=== PATIENT | male | born 1995 | race Caucasian/White ===

== ENCOUNTER 2018-10-05 14:05 | Emergency (ER) | payer SELFPAY ==
[2018-10-05 15:15] VITALS: BP 140/93
--- NOTE | 2018-10-05 16:48 | ED Physician Documentation ---
PD HPI SKIN - Stated complaint Stated Complaint: BUMP ON BILAT SIDES - Chief complaint Chief Complaint: Wound - History obtained from History obtained from: Patient - History of Present Illness Timing - onset: Other (For the last 3-5 months he has had painful and annoying lumps above both hips. They are slowly worsening and growing.) Review of Systems Constitutional: denies: Fever, Chills GI: denies: Abdominal Pain, Nausea, Vomiting : reports: Reviewed and negative PD PAST MEDICAL HISTORY - Present Medications Home Medications: Ambulatory Orders Medication Instructions Recorded Confirmed Meloxicam [Mobic] 7.5 mg PO BID PRN #20 tablet 10/05/18 - Allergies Allergies/Adverse Reactions: Allergies Allergy/AdvReac Type Severity Reaction Status Date / Time No Known Drug Allergies Allergy Verified 10/05/18 15:15 PD ED PE NORMAL - Vitals Vital signs reviewed: Yes - General General: Alert and oriented X 3, No acute distress - Derm Derm: Other (He has a marble sized firm lump above the pelvic brim on the right and a 3 x 1 cm similar lump in a similar position on the left. They are consistent with lipomas.) - Neuro Neuro: Alert and oriented X 3, Normal speech Results - Vitals Vitals: Vital Signs - 24 hr 10/05/18 15:11 Temperature 36.2 C L Heart Rate 82 Respiratory 16 Rate Blood Pressure 140/93 H O2 Saturation 100 Oxygen O2 Source Room air Departure - Departure Disposition: 01 Home, Self Care Clinical Impression: Multiple lipomas Condition: Good Record reviewed to determine appropriate education?: Yes Instructions: ED Lipoma Follow-Up: Toney Valentin MD [Provider Admit Priv/Credential] - Prescriptions: Meloxicam [Mobic] 7.5 mg PO BID PRN #20 tablet PRN Reason: Pain Comments: Call your doctor to arrange a follow-up appointment, make the next available appointment. In the interim, return anytime if worse or if new symptoms develop. Your blood pressure was elevated today on check into the emergency department. This does not mean that you have hypertension, it is a common phenomenon to come to the emergency department and have elevated blood pressure. I recommend that you see your primary care physician within the week to have it rechecked when you are feeling better.
== END 2018-10-05 16:50 | disposition home or self-care (01) ==
LOC: ED 14:05
DX: D17.79 Benign lipomatous neoplasm of other sites (principal); R03.0 Elevated blood-pressure reading, without diagnosis of hypertension
CPT/HCPCS: 99283

== ENCOUNTER 2020-06-12 09:14 | Outpatient (CLI) | payer OTHER ==
[2020-06-12 12:06] LABS: BASOPHILS % (AUTO) 0.5 %; EOSINOPHILS # (AUTO) 0.3 10^3/uL (0.0-0.7); EOSINOPHILS % (AUTO) 5.3 %; LYMPHOCYTES # (AUTO) 1.6 10^3/uL (1.5-3.5); LYMPHOCYTES % (AUTO) 25.4 %; MEAN CORPUSCULAR HEMOGLOBIN 28.8 pg (27.0-31.0); MEAN CORPUSCULAR HGB CONC 33.3 g/dL (32.0-36.0); MEAN CORPUSCULAR VOLUME 86.4 fL (80.0-94.0); MEAN PLATELET VOLUME 11.3 fL (7.4-11.4); MONOCYTES # (AUTO) 0.4 10^3/uL (0.0-1.0); MONOCYTES % (AUTO) 5.9 %; NEUTROPHILS # (AUTO) 4.1 10^3/uL (1.5-6.6); NEUTROPHILS % (AUTO) 62.7 %; PLT - PLATELET COUNT 206 10^3/uL (130-450); RED BLOOD COUNT 5.21 10^6/uL (4.70-6.10); RED CELL DISTRIBUTION WIDTH 11.8 % (12.0-15.0); WHITE BLOOD COUNT 6.5 x10^3/uL (4.8-10.8)
[2020-06-12 12:23] LABS: ALBUMIN 4.6 g/dL (3.2-5.5); ALBUMIN/GLOBULIN RATIO 1.6 (1.0-2.2); BILIRUBIN,TOTAL 2.4 mg/dL (0.2-1.0); CALCIUM 9.5 mg/dL (8.5-10.3); CREATININE 0.9 mg/dL (0.6-1.2); TOTAL PROTEIN 7.4 g/dL (6.7-8.2)
[2020-06-12 12:48] LABS: HEMOGLOBIN A1c% 5.3 % (4.27-6.07)
== END 2020-06-12 23:59 | disposition home or self-care (01) ==
LOC: LAB.WCP 09:14
PROVIDERS: ATTEND Family Medicine
DX: M54.5 Low back pain (principal); G89.29 Other chronic pain; R61 Generalized hyperhidrosis
CPT/HCPCS: 36415; 80053; 83036; 84443; 85025; 85651

== ENCOUNTER 2020-06-22 08:30 | Outpatient (CLI) | payer OTHER ==
--- NOTE | 2020-06-22 13:39 | XRAY Report ---
PROCEDURE: Lumbar Spine 2 View INDICATIONS: NIGHT SWEATS/CHRONIC LOW BACK PAIN TECHNIQUE: 2 views of the lumbar spine were acquired. COMPARISON: None. FINDINGS: Bones: 5 [id number] vertebrae are present. There is normal bony alignment. No vertebral body compression fractures. No suspicious bony lesions. Soft tissues: Overlying bowel gas pattern is normal. No suspicious soft tissue calcifications. IMPRESSION: No visualized acute fracture or dislocation. However, occult injury cannot be excluded. Recommend short interval imaging follow-up in 7-10 days as clinically indicated for additional evalua tion. Reviewed by: Katie Das MD on 06/22/2020 1:37 PM PDT Approved by: Katie Das MD on 06/22/2020 1:37 PM PDT Station ID: [id number]
--- NOTE | 2020-06-22 13:39 | XRAY Report ---
PROCEDURE: Chest 2 View X-Ray INDICATIONS: NIGHT SWEATS/CHRONIC LOW BACK PAIN TECHNIQUE: 2 view(s) of the chest. COMPARISON: None. FINDINGS: Surgical changes and devices: None. Lungs and pleura: No pleural effusions or pneumothorax. Lungs are clear. Mediastinum: Mediastinal contours are normal. Heart size is normal. Bones and chest wall: No suspicious bony abnormalities. Soft tissues appear unremarkable. IMPRESSION: No acute pulmonary process. Reviewed by: Katie Das MD on 06/22/2020 1:37 PM PDT Approved by: Katie Das MD on 06/22/2020 1:37 PM PDT Station ID: [id number]
== END 2020-06-22 08:31 | disposition home or self-care (01) ==
LOC: DI 08:30
PROVIDERS: ATTEND Family Medicine
DX: R61 Generalized hyperhidrosis (principal); M54.5 Low back pain
CPT/HCPCS: 71046; 72100

== ENCOUNTER 2021-01-19 14:07 | Emergency (ER) | payer OTHER ==
[2021-01-19 14:20] VITALS: BP 150/98
--- NOTE | 2021-01-19 14:26 | ED Physician Documentation ---
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 No: Weakness Similar symptoms before: Has not had sx before Review of Systems Skin: denies: Abrasion (s), Laceration (s) Neurologic: reports: Numbness (in lateral toes and side of foot). denies: Focal weakness PD PAST MEDICAL HISTORY - Past Medical History Past Medical History: No - Present Medications Home Medications: Ambulatory Orders Medication Instructions Recorded Confirmed HYDROcod/ACETAM 5/325 [Lingle 5/325] 1 ea PO Q6H PRN #12 tablet 01/19/21 Ibuprofen [Motrin] 600 mg PO TID PRN #25 tab 01/19/21 - Allergies Allergies/Adverse Reactions: Allergies Allergy/AdvReac Type Severity Reaction Status Date / Time No Known Drug Allergies Allergy Verified 01/19/21 14:18 PD ED PE NORMAL - Vitals Vital signs reviewed: Yes - General General: Alert and oriented X 3, No acute distress, Well developed/nourished - Derm Derm: Normal color, Warm and dry - Extremities Extremities: Other (The patient has tenderness and swelling along the lateral malleolus with particular tenderness in the ATFL area. Assessment of laxity is difficult due to guarding and swelling. The Achilles is nontender. There is mild tenderness medially as well. Normal color and pulses in distal) - Neuro Neuro: Alert and oriented X 3, No motor deficit, Normal speech Results - Vitals Vitals: Vital Signs - 24 hr 01/19/21 14:18 Temperature 36.8 C Heart Rate 68 Respiratory 18 Rate Blood Pressure 150/98 H O2 Saturation 99 Oxygen O2 Source Room air - Rads (name of study) right ankle Radiology: Prelim report reviewed (no fractures), See rad report PD MEDICAL DECISION MAKING - ED course Complexity details: considered differential (He has considerable swelling and tenderness in the lateral ankle and also some tenderness medially. Concern would be for moderate ligament injury and we will treat him with cast boot rather than just Aircast. Crutches will be provided as well. I would have him follow-up with orthopedics in about ), d/w patient Departure - Departure Disposition: 01 Home, Self Care Clinical Impression: Moderate right ankle sprain Qualifiers: Encounter type: initial encounter Qualified Code(s): S93.401A - Sprain of unspecified ligament of right ankle, initial encounter Record reviewed to determine appropriate education?: Yes Instructions: ED Sprain Ankle Follow-Up: Brandon Ca MD [Provider Admit Priv/Credential] - Prescriptions: Ibuprofen [Motrin] 600 mg PO TID PRN #25 tab PRN Reason: Pain HYDROcod/ACETAM 5/325 [Lingle 5/325] 1 ea PO Q6H PRN #12 tablet PRN Reason: Pain Comments: Off work for 2 days, then limited walking/standing for another week until follow up with Ortho. Use the walking cast boot around for the next likely 3 to 4 weeks. Initially use crutches as needed for nonweightbearing and progress partial to weightbearing as tolerated. Be sure to have the walking boot on to support the ligaments. You can have it off when rested and sleeping unless it feels more comfortable with it on. Anti-inflammatory such as ibuprofen 3 times a day. To that add Tylenol if needed for pain. Ice elevate and rest the ankle often today and tomorrow. Off work likely a day or 2 and then limited standing or walking for another week until follow-up with orthopedics. Forms: Activity restrictions
--- OUTSIDE RECORDS SUMMARY | 2021-01-19 14:26 | EXTERNAL MEDICAL SUMMARY RPT | Continuity of Care Document ---
:1995 Demographics Phone Unavailable Preferred Language Unknown Marital Status Unknown Zoroastrianism Affiliation Unknown Race Unknown Ethnic Group Unknown Author Organization [facility] Address [address] [place] [address] Phone Social History date description facility [id number]
--- NOTE | 2021-01-19 15:03 | XRAY Report ---
PROCEDURE: Ankle 3 View RT INDICATIONS: ANKLE PAIN TECHNIQUE: 3 views of the ankle were acquired. COMPARISON: None FINDINGS: Bones: No fractures or dislocations. Ankle mortise is normally aligned. No suspicious bony lesions . Soft tissues: No tibiotalar joint effusion. Achilles tendon appears normal. IMPRESSION: Normal left ankle. Reviewed by: Yohannes Bashir on 01/19/2021 3:02 PM PDT Approved by: Yohannes Bashir on 01/19/2021 3:02 PM PDT Station ID: [id number]
[2021-01-19] MEDS ORDERED: ACETAMINOPHEN 325 MG TABLET PO STA (15:07)
[2021-01-19] MEDS ORDERED: IBUPROFEN 600 MG TABLET PO STA (15:07)
== END 2021-01-19 15:40 | disposition home or self-care (01) ==
LOC: ED 14:07
DX: S93.401A Sprain of unspecified ligament of right ankle, initial encounter (principal); X50.1XXA Overexertion from prolonged static or awkward postures, initial encounter; Y93.89 Activity, other specified; Y99.0 Civilian activity done for income or pay
CPT/HCPCS: 1040M; 73610; 99283; A9270

== ENCOUNTER 2023-03-29 10:10 | Emergency (ER) | payer OTHER ==
[2023-03-29] MEDS ORDERED: TETANUS/DIPHTHERIA/PERTUSSIS 0.5 ML SYRINGE IM ONE (10:46)
--- NOTE | 2023-03-29 11:06 | XRAY Report ---
PROCEDURE: Wrist 4 View RT INDICATIONS: dorsal pain TECHNIQUE: 3 views of the wrist were acquired. COMPARISON: None. FINDINGS: Bones: No fractures or dislocations. No suspicious bony lesions. Soft tissues: No suspicious soft tissue calcifications or masses. IMPRESSION: No acute bony abnormality. Reviewed by: Yohannes Bashir on 03/29/2023 10:04 AM MICKEY Approved by: Yohannes Bashir on 03/29/2023 10:04 AM MICKEY Station ID: [id number]
--- NOTE | 2023-03-29 11:23 | ED Physician Documentation ---
PD HPI UPPER EXT INJURY - Stated complaint Stated Complaint: RT ARM DOG BITE - Chief complaint Chief Complaint: Wound - History obtained from History obtained from: Patient - History of Present Illness Location: Right, Forearm Type of injury: Other (dog bite) Where injury occurred: Home Timing - onset: Today Timing - duration: Minutes Timing - details: Abrupt onset, Still present Improved by: Rest, Immobilization Worsened by: Moving, Palpating Associated symptoms: Numbness (resolved). No: Weakness Contributing factors: No: Anticoagulated Similar symptoms before: Has not had sx before Recently seen: Not recently seen - Additonal information Additional information: Iain Femrin is a 28-year-old male who was at his neighbor's today when the neighbors dog had a rabbit in his mouth. They attempted to get the rabbit out of his mouth with treats when the patient went to reach for the rabbits foot the dog attacked his arm. He has multiple bite waller to his arm he has significant pain associated with this. He did have some transient numbness. He has significant pain to his forearm. The rabbit that was in the dog's mouth had poor adhesion of his fur and appeared sick but was . There is currently an outbreak of hemorrhagic rabbit virus and this apparently is not transmissible to humans. Review of Systems Constitutional: denies: Fever Ears: denies: Ear pain Nose: denies: Congestion Respiratory: denies: Cough GI: denies: Vomiting, Diarrhea PD PAST MEDICAL HISTORY - Present Medications Home Medications: Ambulatory Orders Medication Instructions Recorded Confirmed HYDROcod/ACETAM 5/325 [Alexander 5/325] 1 ea PO Q6H PRN #12 tablet 01/19/21 Ibuprofen [Motrin] 600 mg PO TID PRN #25 tab 01/19/21 Doxycycline [Vibramycin] 100 mg PO BID #10 tablet 03/29/23 HYDROcod/ACETAM 5/325 [Alexander 5/325] 1 - 2 tablet PO Q6H PRN #14 tablet 03/29/23 - Allergies Allergies/Adverse Reactions: Allergies Allergy/AdvReac Type Severity Reaction Status Date / Time No Known Drug Allergies Allergy Verified 01/19/21 14:18 - Social History Does the pt smoke?: No Smoking Status: Never smoker PD ED PE NORMAL - Vitals Vital signs reviewed: Yes (hypertensive ) - General General: Alert and oriented X 3, No acute distress, Well developed/nourished - HEENT HEENT: Atraumatic, PERRL, EOMI - Respiratory Respiratory: No respiratory distress - Derm Derm: Normal color, Warm and dry - Extremities Extremities: Other (multiple puncture wounds to the right forearm as well as abrasion. Point tenderness over the dorsal wrist with decreased ROM from pain. disal n/v inact. 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 2-12 intact, No motor deficit, No sensory deficit, Normal speech Eye Opening: Spontaneous Motor: Obeys Commands Verbal: Oriented GCS Score: 15 - Psych Psych: Normal mood, Normal affect Results - Vitals Vitals: Vital Signs - 24 hr 03/29/23 03/29/23 10:15 12:11 Temperature 36.6 C Heart Rate 96 67 Respiratory 20 18 Rate Blood Pressure 151/111 H 154/85 H O2 Saturation 100 100 Oxygen O2 Source Room air - Rads (name of study) wrist R Relevant Findings:: Prelim report reviewed (Impression: No acute bony abnormality.), EMP independent interpretation of test PD Medical Decision Making - ED course Complexity details: considered differential, d/w patient, d/w family ED course: 28-year-old male with a dog bite to his right forearm has additional concerns wi th the nature of the animal that was in the dog's mouth. This was a rabbit who appears to have been sick. There is currently an outbreak of hemorrhagic viral rabbit disease and this is apparently not transmissible to humans. The patient still is at risk for Pasteurella multocida and for Taluremia. We will place the patient on a course of doxycycline for prophylaxis. Departure - Departure Disposition: 01 Home, Self Care Clinical Impression: Dog bite of right forearm Qualifiers: Encounter type: initial encounter Qualified Code(s): S51.851A - Open bite of right forearm, initial encounter Condition: Stable Instructions: ED Bite Dog Follow-Up: Art Kwok MD [Primary Care Provider] - Prescriptions: HYDROcod/ACETAM 5/325 [Alexander 5/325] 1 - 2 tablet PO Q6H PRN #14 tablet PRN Reason: Pain Doxycycline [Vibramycin] 100 mg PO BID #10 tablet Comments: Iain, today it looks like you were bit by a dog and there is some additional concern for the condition of the rabbit itself. (Rabbit hemorrhagic disease virus 2 which is not transmissible to humans and taluremia carried by rabbits and treatable with antibiotic) We usually provide antibiotic for prophylaxis of infection and today we are providing some doxycycline. This has been E scribed to the [facility] in [place]. I have additionally E scribed some Alexander for pain control. I have given you a note for work for 1 week. The expectation is you will have a sore forearm for about a week and the redness just around the edges of each of the puncture wounds should show up about the third day. This should not spread. If you are finding a redness that is spreading swelling that is increasing or you are developing new symptoms we are here 24 hours a day and you are encouraged to return for reevaluation. Forms: Activity restrictions Discharge Date/Time: 03/29/23 12:11
[2023-03-29] MEDS ORDERED: HYDROcod/ACETAM 5/325 MG TABLET PO STA (11:48)
[2023-03-29 12:12] VITALS: BP 154/85
== END 2023-03-29 12:11 | disposition home or self-care (01) ==
LOC: ED 10:10
DX: S51.851A Open bite of right forearm, initial encounter (principal); W54.0XXA Bitten by dog, initial encounter; Y93.89 Activity, other specified
CPT/HCPCS: 73110; 90471; 90715; 99283; A9270

== ENCOUNTER 2024-04-19 10:00 | Emergency (ER) | payer MEDICAID, OTHER ==
--- NOTE | 2024-04-19 13:15 | ED Physician Documentation ---
History of Present Illness - Stated complaint Stated Complaint: RT FOOT RED SWELLING PX - Chief complaint Chief Complaint: Ext Problem - History obtained from History obtained from: Patient - Additonal information Additional information: 29-year-old male presents with pruritic and dry skin on his feet bilaterally, left more so than right. His dry and irritated skin between the toes and then along the side of the left foot. 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 He has been using hydrocortisone cream on it without relief in symptoms. PD PAST MEDICAL HISTORY - Past Medical History Past Medical History: No Cardiovascular: None Respiratory: None Neuro: None Endocrine/Autoimmune: None GI: None : None HEENT: None Psych: None Musculoskeletal: None Derm: None - Past Surgical History Past Surgical History: Yes HEENT: Tonsil/Adenoidectomy - Present Medications Home Medications: Ambulatory Orders Medication Instructions Recorded Confirmed Ciclopirox 1 applic TP BID 14 Days #100 gm 04/19/24 - Allergies Allergies/Adverse Reactions: Allergies Allergy/AdvReac Type Severity Reaction Status Date / Time No Known Drug Allergies Allergy Verified 04/19/24 10:28 - Social History Does the pt smoke?: No Smoking Status: Never smoker - Immunizations Immunizations: TDAP >10years/unknown PD ED PE NORMAL - Vitals Vital signs reviewed: Yes - General General: Alert and oriented X 3, No acute distress, Well developed/nourished - Derm Derm: Other (There is a dry and peeling skin the base of all the toes and in between the toes there is some macerated skin. There are a few scabs along the lateral aspect of the left foot, no surrounding erythema. No drainage actively.) - Extremities Extremities: No deformity, No tenderness to palpate, Normal ROM s pain, No edema Results - Vitals Vitals: Vital Signs - 24 hr 04/19/24 10:23 Temperature 36.2 C L Heart Rate 75 Respiratory 18 Rate Blood Pressure 157/81 H O2 Saturation 99 Oxygen O2 Source Room air PD Medical Decision Making - ED course Complexity details: considered differential, d/w patient ED course: Patient presents with pruritic in peeling skin around the toes and in between the toes of both feet as described in HPI. He has been using hydrocortisone cream on them without relief. He clinically has tinea pedis on exam and I have recommended we change his medication to a topical antifungal agent which has been prescribed. He was encouraged to keep his feet clean and dry is much as possible, bring a pair of dry socks to change instructed workday if he has feet get sweaty, take off his boots as soon as he gets home, wash them shortness of water and allowed to dry air dry. If no improvement with this course of treatment, follow-up with PCP. Departure - Departure Disposition: Home, Self Care Clinical Impression: Tinea pedis Qualifiers: Laterality: bilateral Qualified Code(s): B35.3 - Tinea pedis Condition: Good Instructions: ED Fungal Infec Athlete Foot Prescriptions: Ciclopirox 1 applic TP BID 14 Days #100 gm Comments: Please use the ointment I prescribed twice a day for 14 days. Medication sent to [facility]. If your insurance does not pay for this, you can get it [id number] medication such as Lamisil which works similarly. Forms: PCP List
[2024-04-19 13:32] VITALS: BP 140/86; O2SAT 100
== END 2024-04-19 13:16 | disposition home or self-care (01) ==
LOC: ED 10:00
DX: B35.3 Tinea pedis (principal)
CPT/HCPCS: 99282; 99283